=== PATIENT | male | born 1980 | race Caucasian/White ===

== ENCOUNTER → 2021-04-10 | Outpatient (CLI) | payer MEDICARE, MEDICAID | END | disposition home or self-care (01) | LOC: RAD 15:31 → EDSTATUS 16:00 | PROVIDERS: ATTEND Physician Assistant | DX: M19.011 Primary osteoarthritis, right shoulder (principal); B18.2 Chronic viral hepatitis C; R74.8 Abnormal levels of other serum enzymes | CPT/HCPCS: 76705 ==